=== PATIENT | female | born 1950 | race Caucasian/White ===

== ENCOUNTER 2019-11-06 22:07 | Emergency (ER) | payer MEDICARE ==
[~2019-11-06] VITALS: Ht 170.2 cm; Wt 99.6 kg
[2019-11-06] MEDS ORDERED: IV RINGERS SOLUTION,LACTATED 1,000 ML IV SCH (22:21)
[2019-11-06] MEDS ORDERED: VANCOMYCIN 1 GM in IV NORMAL SALINE 250ML 250 ML IV ONE (22:30)
[2019-11-06] MEDS ORDERED: VANCOMYCIN 2 GM in IV NORMAL SALINE 500ML 500 ML IV ONE (23:00)
[2019-11-06] MEDS ORDERED: IV NORMAL SALINE 50ML 50 ML ONE (23:15)
[2019-11-06] MEDS ORDERED: cefTRIAXone SODIUM 1 GM VIAL ONE (23:15)
--- NOTE | 2019-11-06 23:54 | RAD ---
INDICATION: Right leg surgery with pain COMPARISON: None. TECHNIQUE: Grayscale, color and doppler ultrasound images were obtained of the right lower extremity venous vasculature. RIGHT: Limited evaluation given that the patient was having trouble tolerating at time of exam. Right leg edema. Partial compression of common femoral and superficial femoral vein. There is some flow within the popliteal vein but cannot evaluate for compression. Calf vessels not well evaluated. IMPRESSION: * Very limited exam since the patient was having trouble tolerating. Partial compression of the common femoral and superficial femoral vein. This can be seen with partial thrombus. Electronically signed by: Harrison Brown MD (11/06/2019 11:51 PM) [id number]
[2019-11-07 00:07] LABS: CALCIUM 8.5 mg/dL (8.5-10.1); CREATININE 2.5 mg/dL (0.6-1.0); POTASSIUM 4.1 mmol/L (3.5-5.1)
--- NOTE | 2019-11-07 00:13 | RAD ---
INDICATION: Right leg pain after surgery COMPARISON: None. FINDINGS: Spectral Doppler, color and grayscale ultrasound images obtained of right leg arterial structures. The right common femoral, proximal deep femoral, superficial femoral and popliteal arteries are patent. Biphasic waveform within the superficial femoral and popliteal artery. Peroneal artery is not seen. Vascular flow seen within the anterior tibial and dorsalis pedis artery. Biphasic waveforms. Common femoral arteries only partially seen secondary to dressing in the area. 50 x 42 x 17 mm hypoechoic collection at the medial thigh IMPRESSION: * Hypoechoic collection at the medial thigh most commonly from hematoma. Please note that superinfection cannot be excluded on ultrasound. * Peroneal artery is not visualized with vascular flow seen above the knee as well as within the anterior tibial and dorsalis pedis artery.. Electronically signed by: Harrison Brown MD (11/07/2019 12:09 AM) [id number]
[2019-11-07 00:18] LABS: BASO # 0.1 x10^3/uL (0.0-0.2); BASO % 1 % (0-3); EOS % 0 % (0-3); HEMATOCRIT 29.7 % (36.0-47.0); HEMOGLOBIN 9.6 g/dL (12.0-15.5); LYMPH # 0.2 x10^3/uL (1.0-4.8); LYMPH % 2 % (24-48); MEAN CORPUSCULAR HEMOGLOBIN 31 pg (25-35); MEAN CORPUSCULAR HGB CONC 32 g/dL (31-37); MEAN CORPUSCULAR VOLUME 98 fL (79-100); MONO # 0.8 x10^3/uL (0.0-1.1); MONO % 8 % (0-9); NEUT % 89 % (31-73); PLATELET COUNT 247 x10^3/uL (140-400); RED BLOOD COUNT 3.05 x10^6/uL (3.50-5.40); WHITE BLOOD COUNT 10.1 x10^3/uL (4.0-11.0)
[2019-11-07 00:20] LABS: DIRECT BILIRUBIN 0.4 mg/dL (0.0-0.2); TOTAL PROTEIN 6.4 g/dL (6.4-8.2)
[2019-11-07 00:33] LABS: BACTERIA,URINE MANY /HPF (0-FEW); BILIRUBIN,URINE NEG (NEG); CLARITY,URINE HAZY; COLOR,URINE YELLOW; GLUCOSE,URINE NEG (NEG); NITRITE,URINE NEG (NEG); SQUAMOUS EPITHELIAL CELL,UR FEW /LPF; UROBILINOGEN,URINE 0.2 mg/dL (0.2 mg/dL); WBC,URINE >40 /HPF (0-4)
--- NOTE | 2019-11-07 00:44 | EKG ---
[address] [address] Test Date: 2019-11-06 Test Time: 22:38:06 Pat Name: RICHELLE BEAULIEU Department: Room: Gender: F Care Services Manager: : 1950 Requested By: KARYN IRIZARRY Order Number: [id number] Reading MD: Measurements Intervals [place] Rate: 94 P: -90 NV: 168 QRS: 51 QRSD: 82 T: 37 QT: 308 QTc: 385 Interpretive Statements SINUS RHYTHM LOW LIMB LEAD VOLTAGE NO SPECIFIC ECG ABNORMALITIES RI6.01 No previous ECG available for comparison
[2019-11-07 00:49] LABS: % BANDS 14 % (0-9); % BASOS 1 % (0-3); % LYMPHS 7 % (24-48); % MONOS 5 % (0-10); % SEGS 73 % (35-66); PLT ESTIMATE ADEQUATE (ADEQUATE)
--- NOTE | 2019-11-07 01:24 | PHYS DOC ---
Past History Past Medical History: Anemia, Anxiety, Arthritis, CAD, CHF, Diabetes, High Cholesterol, Heart Disease, Hypertension, Renal Disease, Renal Failure, UTI Past Medical History Peripheral vascular disease Past Surgical History: Other Past Surgical History Recent iliofemoral bypass on right Adult General Chief Complaint Chief Complaint: POST-OP PROBLEM.." I hurt down...where they did surgery... I am having fever.. and chills.. I am sick.. just so weak..." HPI HPI Patient is a 69 year old female who presents with above history and complaints of dehiscence of right surgery site. She apparently was seen by vascular surgery at approximately 1-1/2 weeks ago for ileal femoral bypass. Surgery site is draining pus erythemic and tender to touch. Area of suture line appears to have dehiscence. Patient is somewhat a poor historian. Review of Systems Review of Systems Constitutional: Complaints of fever or chills [] Eyes: Denies change in visual acuity, redness, or eye pain [] HENT: Denies nasal congestion or sore throat [] Respiratory: Denies cough or shortness of breath [] Cardiovascular: No additional information not addressed in HPI [] GI: Denies abdominal pain, nausea, vomiting, bloody stools or diarrhea Patient complaints of right groin pain : Denies dysuria or hematuria [] Musculoskeletal: Denies back pain or joint pain . Patient []complaints of generalized weakness Integument: Denies rash or skin lesions [] Neurologic: Denies headache, focal weakness or sensory changes [] Endocrine: Denies polyuria or polydipsia [] All other systems were reviewed and found to be within normal limits, except as documented in this note. Family History Family History Noncontributory to presentation Current Medications Current Medications Current Medications Medications (Trade) Dose Ordered Sig/Christopher Start Time Stop Time Status Last Admin Dose Admin Ceftriaxone Sodium 1 gm/ Sodium Chloride 50 ml @ 100 mls/hr 1X ONCE 11/06/19 22:30 11/06/19 22:59 DC 11/06/19 23:35 100 MLS/HR Ceftriaxone Sodium (Rocephin) 1 gm STK-MED ONCE 11/06/19 23:15 11/06/19 23:16 DC Lactated Ringer's 1,000 ml @ 100 mls/hr Q10H 11/06/19 22:21 11/07/19 08:20 11/06/19 23:34 100 MLS/HR Sodium Chloride 50 ml @ As Directed STK-MED ONCE 11/06/19 23:15 11/06/19 23:15 DC Vancomycin HCl 1 gm/Sodium Chloride 250 ml @ 250 mls/hr 1X ONCE 11/06/19 22:30 11/06/19 22:48 DC Vancomycin HCl 2 gm/Sodium Chloride 500 ml @ 250 mls/hr 1X ONCE 11/06/19 23:00 11/07/19 00:59 DC Allergies Allergies Allergies Coded Allergies Type Severity Reaction Last Updated Verified No Known Drug Allergies 11/06/19 No Physical Exam Physical Exam Constitutional: In moderate acute distress, ill appearance. [] HENT: Normocephalic, atraumatic, bilateral external ears normal, oropharynx dry, no oral exudates, nose normal. [] Eyes: PERRLA, EOMI, conjunctiva normal, no discharge. [] Neck: Normal range of motion, no tenderness, supple, no stridor. [] Cardiovascular: Tachycardia Heart rate regular rhythm, no murmur PMI to the left] Lungs & Thorax: Bilateral breath sounds equal at apex with scattered wheezes and basilar crackles on auscultation [] Abdomen: Bowel sounds normal, soft, no tenderness, no masses, no pulsatile masses. [] Obese. Open wound in right groin. Pus draining from wound. Skin: Warm, dry, no erythema, no rash. [] Back: No tenderness, no CVA tenderness. [] Extremities: Decreased distal pulses are equal to left leg, pain in right groin bilateral ankle edema. [] Neurologic: Alert and oriented x2, moves extremities on request, has decrease plantar sensation bilateral,, Psychologic: Affect anxious, judgement impaired, at times confused. Depressed mood] Current Patient Data Lab Results Laboratory Tests Test 11/06/19 23:29 11/06/19 23:50 11/06/19 23:59 Prothrombin Time 10.8 SEC (9.4-11.4) Prothrombin Time INR 1.0 (0.9-1.1) Activated Partial Thromboplast Time 27 SEC (23-33) D-Dimer (Salud) 8.87 mg/L (0.00-0.50) H Sodium Level 136 mmol/L (136-145) Potassium Level 4.1 mmol/L (3.5-5.1) Chloride Level 98 mmol/L (98-107) Carbon Dioxide Level 24 mmol/L (21-32) Anion Gap 14 (6-14) Blood Urea Nitrogen 47 mg/dL (7-20) H Creatinine 2.5 mg/dL (0.6-1.0) H Estimated GFR (Cockcroft-Gault) 19.0 Glucose Level 124 mg/dL (70-99) H Lactic Acid Level 1.7 mmol/L (0.4-2.0) Calcium Level 8.5 mg/dL (8.5-10.1) Magnesium Level 2.0 mg/dL (1.8-2.4) Total Bilirubin 1.0 mg/dL (0.2-1.0) Direct Bilirubin 0.4 mg/dL (0.0-0.2) H Aspartate Amino Transferase (AST) 37 U/L (15-37) Alanine Aminotransferase (ALT) 25 U/L (14-59) Alkaline Phosphatase 90 U/L (46-116) Creatine Kinase 111 U/L (26-192) Troponin I Quantitative 0.116 ng/mL (0-0.055) H IO-Pgp-S-Type Natriuretic Peptide 6256 pg/mL (0-124) H Total Protein 6.4 g/dL (6.4-8.2) Albumin 3.0 g/dL (3.4-5.0) L Lipase 59 U/L (73-393) L Urine Collection Type Unknown Urine Color Yellow Urine Clarity Hazy Urine pH 5.5 Urine Specific Gates 1.015 Urine Protein Trace (NEG-TRACE) Urine Glucose (UA) Neg mg/dL (NEG) Urine Ketones (Stick) Neg mg/dL (NEG) Urine Blood Trace (NEG) Urine Nitrite Neg (NEG) Urine Bilirubin Neg (NEG) Urine Urobilinogen Dipstick 0.2 mg/dL (0.2 mg/dL) Urine Leukocyte Esterase Large (NEG) Urine RBC 1-2 /HPF (0-2) Urine WBC >40 /HPF (0-4) Urine Squamous Epithelial Cells Few /LPF Urine Bacteria Many /HPF (0-FEW) White Blood Count 10.1 x10^3/uL (4.0-11.0) Red Blood Count 3.05 x10^6/uL (3.50-5.40) L Hemoglobin 9.6 g/dL (12.0-15.5) L Hematocrit 29.7 % (36.0-47.0) L Mean Corpuscular Volume 98 fL (79-100) Mean Corpuscular Hemoglobin 31 pg (25-35) Mean Corpuscular Hemoglobin Concent 32 g/dL (31-37) Red Cell Distribution Width 16.0 % (11.5-14.5) H Platelet Count 247 x10^3/uL (140-400) Neutrophils (%) (Auto) 89 % (31-73) H Lymphocytes (%) (Auto) 2 % (24-48) L Monocytes (%) (Auto) 8 % (0-9) Eosinophils (%) (Auto) 0 % (0-3) Basophils (%) (Auto) 1 % (0-3) Neutrophils # (Auto) 9.0 x10^3uL (1.8-7.7) H Lymphocytes # (Auto) 0.2 x10^3/uL (1.0-4.8) L Monocytes # (Auto) 0.8 x10^3/uL (0.0-1.1) Eosinophils # (Auto) 0.0 x10^3/uL (0.0-0.7) Basophils # (Auto) 0.1 x10^3/uL (0.0-0.2) Segmented Neutrophils % 73 % (35-66) H Band Neutrophils % 14 % (0-9) H Lymphocytes % 7 % (24-48) L Monocytes % 5 % (0-10) Basophils % 1 % (0-3) Platelet Estimate Adequate (ADEQUATE) EKG EKG My interpretation EKG shows a sinus rhythm at 94 bpm. No findings acute STEMI of contralateral changes.[] Radiology/Procedures Radiology/Procedures [address] [address] IMAGING REPORT Signed PATIENT: RICHELLE BEAULIEU ACCOUNT: [id number] : 1950 LOCATION: ER AGE: 69 SEX: F EXAM STATUS: REG ER ORD. PHYSICIAN: KARYN IRIZARRY MD REASON: ulceration or Rt. leg, POST SURGERY. PROCEDURE: CT PELVIS WO CONTRAST INDICATION: Ulceration status post surgery COMPARISON: Ultrasound earlier same day TECHNIQUE: Axial CT images obtained through the pelvis without contrast. One or more of the following individualized dose reduction techniques were utilized for this examination: 1. Automated exposure control; 2. Adjustment of the mA and/or kV according to patient size; 3. Use of iterative reconstruction technique. FINDINGS: Partial visualization of infrarenal abdominal aortic aneurysm with iliac stent grafts. The aneurysm sac is only partially seen but measures 55 x 50 mm in the visualized portion. Calcific atherosclerosis. Suspected grafts in the bilateral common femoral and superficial femoral arteries. There is some subcutaneous prominent vessels in the left leg. Surgical clips within the bilateral groin as well as linear induration the fat adjacent to the vessels in the groin postoperatively. Suspected fat-containing inguinal hernias. The region of induration overlying the left common femoral artery measures up to about 40 x 17 mm. There is induration of the fat with some air and debris as well as linear opacity overlying the right common femoral and superficial femoral artery with adjacent edema to the fat. Irregular shape but measures up to approximately 58 x 19 mm. There is edema seen to the adjacent soft tissues. Urinary bladder has a catheter within. Colonic diverticulosis. Degenerative changes of the partially visualized lower lumbar spine with neural foraminal and central canal stenosis. Degenerative changes the hips. Subchondral sclerosis at the bilateral femoral heads. Could be degenerative in nature although early avascular necrosis is not excluded. IMPRESSION: * Overlying the right common femoral and superficial femoral vessel region there is an area of induration of the fat with air and complex material. This could be postoperative in nature from blood within the area as well as air from the surgery with infectious etiology also within the differential. * There is some induration the fat overlying the left common femoral and superficial femoral vessels to a lesser degree when compared to the right Electronically signed by: Harrison Barone MD (11/07/2019 1:22 AM) [id number] DICTATED AND SIGNED BY: HARRISON BARONE MD DATE: 11/07/19121 CC: KARYN IRIZARRY MD; PCP,UNKNOWN ~ [place] [id number] IMAGING REPORT Signed PATIENT: RICHELLE BEAULIEU ACCOUNT: [id number] : 1950 LOCATION: ER AGE: 69 SEX: F EXAM STATUS: REG ER ORD. PHYSICIAN: AKRYN IRIZARRY MD REASON: surgery 2 weeks ago [facility] PROCEDURE: VENOUS LOWER EXTREMITY RIGHT INDICATION: Right leg surgery with pain COMPARISON: None. TECHNIQUE: Grayscale, color and doppler ultrasound images were obtained of the right lower extremity venous vasculature. RIGHT: Limited evaluation given that the patient was having trouble tolerating at time of exam. Right leg edema. Partial compression of common femoral and superficial femoral vein. There is some flow within the popliteal vein but cannot evaluate for compression. Calf vessels not well evaluated. IMPRESSION: * Very limited exam since the patient was having trouble tolerating. Partial compression of the common femoral and superficial femoral vein. This can be seen with partial thrombus. Electronically signed by: Harrison Barone MD (11/06/2019 11:51 PM) [id number] DICTATED AND SIGNED BY: HARRISON BARONE MD DATE: 11/06/19 4404 CC: KARYN IRIZARRY MD; PCP,NO ~ [][place] [address] IMAGING REPORT Signed PATIENT: RICHELLE BEAULIEU ACCOUNT: [id number] : 1950 LOCATION: ER AGE: 69 SEX: F EXAM STATUS: REG ER ORD. PHYSICIAN: KARYN IRIZARRY MD REASON: surgery 2 weeks ago ku PROCEDURE: DUPLEX LOWER EX ARTERIAL RIGHT INDICATION: Right leg pain after surgery COMPARISON: None. FINDINGS: Spectral Doppler, color and grayscale ultrasound images obtained of right leg arterial structures. The right common femoral, proximal deep femoral, superficial femoral and popliteal arteries are patent. Biphasic waveform within the superficial femoral and popliteal artery. Peroneal artery is not seen. Vascular flow seen within the anterior tibial and dorsalis pedis artery. Biphasic waveforms. Common femoral arteries only partially seen secondary to dressing in the area. 50 x 42 x 17 mm hypoechoic collection at the medial thigh IMPRESSION: * Hypoechoic collection at the medial thigh most commonly from hematoma. Please note that superinfection cannot be excluded on ultrasound. * Peroneal artery is not visualized with vascular flow seen above the knee as well as within the anterior tibial and dorsalis pedis artery.. Electronically signed by: Harrison Barone MD (11/07/2019 12:09 AM) [id number] DICTATED AND SIGNED BY: HARRISON BARONE MD DATE: 11/07/19 0009 CC: KARYN IRIZARRY MD; PCP,UNKNOWN ~ Course & Med Decision Making Course & Med Decision Making Pertinent Labs and Imaging studies reviewed. (See chart for details) Right groin irrigated with normal saline dressing applied. Discussed presentation, testing and tx. plan with Transfer team at . Dr. Guillermo will accept pt. in transfer. 1. Fever and chills 2. Dehiscence of right groin surgery site- appears to be infected 3. Anemia 9.6 hgb 4. Elevated BUN/creatinine 47/2,5 5. Diabetes glucose 124 6. CHF with diastolic dysfunction BNP 6256 7. Elevated Trop 0.116 8. Malnutrition Alb. 3.0 9. Accelerated HTN 10.Deconditioned 11. DVT Rt. common femoral and superfical femoral [] Dragon Disclaimer Dragon Disclaimer This electronic medical record was generated, in whole or in part, using a voice recognition dictation system. Departure Departure: Disposition: 01 HOME/RESIDENCE PRIOR TO ADM Condition: STABLE Referrals: PCP,UNKNOWN (PCP) Dragon Disclaimer This chart was dictated in whole or in part using Voice Recognition software in a busy, high-work load, and often noisy Emergency Department environment. It may contain unintended and wholly unrecognized errors or omissions. Dragon Disclaimer This chart was dictated in whole or in part using Voice Recognition software in a busy, high-work load, and often noisy Emergency Department environment. It may contain unintended and wholly unrecognized errors or omissions. KARYN IRIZARRY MD Nov 07, 2019 01:24
[2019-11-07] MEDS ORDERED: ACETAMINOPHEN 500 MG TABLET PO ONE (01:45)
[2019-11-07] MEDS ORDERED: MORPHINE SULFATE 10 MG/ML SYRINGE. SQ ONE (01:45)
[2019-11-07] MEDS ORDERED: HEPARIN 25,000UTS/250ML PREMIX 250 ML IV PRN ×2 (03:00)
[2019-11-07] MEDS ORDERED: HEPARIN for IV BOLUS 10,000 UNIT/10 ML VIAL. IV PRN ×3 (03:00)
[2019-11-07] MEDS ORDERED: HEPARIN for IV BOLUS 10,000 UNIT/10 ML VIAL. IV ONE ×2 (03:00→03:30)
[2019-11-07] MEDS: FUROSEMIDE 40 MG/4 ML VIAL IVP ONE ×2 (03:02→03:03)
[2019-11-07] MEDS ORDERED: ANTI-COAG MONITOR BY PHARMACY. MC PRN (03:15)
[2019-11-07 03:32] VITALS: BP 108/38
--- NOTE | 2019-11-07 05:48 | RAD ---
INDICATION: Fever with recent surgery COMPARISON: August 2012 FINDINGS: 2 view of chest obtained. Enlarged cardiomediastinal silhouette. Minimal interstitial prominence without a well-defined focal infiltrate. Fullness of pulmonary eloisa again seen IMPRESSION: * Mild interstitial prominence. Mild pulmonary vascular congestion not excluded although this could be secondary to vascular crowding from hypoexpansion given that this is a very mild finding. Electronically signed by: Harrison Brown MD (11/07/2019 5:45 AM) [id number]
== END 2019-11-07 03:50 | disposition home or self-care (01) ==
LOC: ER 22:07
DX: T81.30XA Disruption of wound, unspecified, initial encounter (principal); D64.9 Anemia, unspecified; I11.0 Hypertensive heart disease with heart failure; I50.9 Heart failure, unspecified; E11.9 Type 2 diabetes mellitus without complications; R79.89 Other specified abnormal findings of blood chemistry; E46 Unspecified protein-calorie malnutrition; I25.10 Atherosclerotic heart disease of native coronary artery without angina pectoris; E78.5 Hyperlipidemia, unspecified; I13.0 Hypertensive heart and chronic kidney disease with heart failure and stage 1 through stage 4 chronic kidney disease, or unspecified chronic kidney disease; E11.22 Type 2 diabetes mellitus with diabetic chronic kidney disease; M79.604 Pain in right leg; N18.9 Chronic kidney disease, unspecified; Z68.34 Body mass index [BMI] 34.0-34.9, adult
CPT/HCPCS: 36415; 71045; 72192; 80048; 80076; 81001; 82550; 83605; 83690; 83735; 83880; 84443; 84484; 85007; 85025; 85379; 85610; 85730; 87040; 87077; 87086; 87186; 87205; 93005; 93926; 93971; 96365; 96367; 96372; 96375; 99285; J0696; J1644; J1940; J2270; J3370; J7040; J7120